=== PATIENT | female | born 1955 | race Caucasian/White ===

== ENCOUNTER 2017-06-24 12:13 | Day surgery (SDC) | payer OTHER ==
[2017-06-23 12:05] VITALS: BMI 25.0
[2017-06-24] MEDS ORDERED: MIDAZOLAM HCL 2 MG/2 ML SINGLE DOSE VIAL ONE (13:49)
[2017-06-24] MEDS ORDERED: BACITRACIN 3.5 GM OPTHALMIC OINT TUBE ONE (13:53)
[2017-06-24] MEDS ORDERED: TETRACAINE 0.5% OPHTH SOLN 2 ML BOTTLE ONE (13:53)
[2017-06-24] MEDS ORDERED: BUPIVACAINE HCL/PF 0.5% (5MG/ML) 10 ML VIAL ONE (13:54)
[2017-06-24] MEDS ORDERED: LIDOCAINE 1%/EPI 1:100000 (20 ML MULTI DOSE VIAL) ONE ×2 (13:54→14:40)
[2017-06-24] MEDS ORDERED: POVIDONE-IODINE 5% OPHTHALMIC PREP 30 ML SOLUTION ONE (13:54)
[2017-06-24] MEDS ORDERED: methylPREDNISolone NA SUCC 40 MG/1 ML VIAL ONE (14:21)
[2017-06-24] MEDS ORDERED: PROPOFOL 20 ML ONE ×4 (14:27)
[2017-06-24] MEDS ORDERED: ceFAZolin SODIUM 1 GM VIAL ONE (14:35)
[2017-06-24] MEDS ORDERED: ONDANSETRON 4 MG/2 ML VIAL ONE (15:21)
[2017-06-24] MEDS ORDERED: DEXAMETHASONE SOD PHOSPHATE 4 MG/1 ML VIAL ONE (15:22)
[2017-06-24] MEDS ORDERED: ONDANSETRON 4 MG/2 ML VIAL IVPUSH PRN (15:49)
[2017-06-24] MEDS ORDERED: oxyCODONE HCL 5 MG TABLET PO PRN (15:49)
[2017-06-24] MEDS ORDERED: LACTATED RINGERS SOLUTION 1,000 ML IV SCH (16:00)
[2017-06-24 16:37] VITALS: TEMP 97.7
[2017-06-24 18:20] VITALS: BP 121/78; PULSE 64
--- NOTE | 2017-06-27 09:29 | OP ---
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 PROCEDURES: 1. Exam under anesthesia. 2. Full-thickness blepharotomy, left upper lid, for treatment of severe lid retraction with a graded blepharotomy, followed by a Haywood traction suture on the left upper lid. SURGEON: Kristen Hassan M.D. ANESTHESIA: Local with sedation. COMPLICATIONS: None. ESTIMATED BLOOD LOSS: 2 to 3 mL. OPERATIVE REPORT: The patient was brought to the operating room and placed on the operating room table. Vital signs were monitored by Anesthesia. Tetracaine was placed in both eyes. The lid creases were marked to be symmetric in the left upper lid with the right upper lid at approximately 10 to 11 mm above the margin for the full width of the lid. The patient was given intravenous sedation. Then, 2% Xylocaine 1:100,000 epinephrine was injected into the lid, across the lid crease and subconjunctivally across the top of the tarsus for a total slightly more than 1 mL. hemostasis. Then, 4-0 silk traction suture was passed through the central lid margin. The lid was clamped inferiorly. Once the patient was prepped and draped in usual sterile fashion, a timeout had been performed. The lid crease was then incised with a 15 blade through the skin and subcutaneous tissue. This was carried through the orbicularis with a Oldham needle. The levator was seen through a diaphanous septum. It should be noted that with all the retraction of the eyelid, the septum was somewhat retracted and the fat was elevated above. The septum was widely open, exposing the preoperative fat, which was retracted and then the septum itself was dissected off the levator aponeurosis, across the lid to the eyelid, to allow the full-thickness blepharotomy. Wanda scissors were then introduced at the lateral extent of the eyelid crease and the nasal extent of the eyelid crease, and buttonholes were made at both points, quartering it with the Wanda for initiation of the full-thickness blepharotomy. The patient was placed in the upright position and a 3- to 5-mm pedicle of retained levator muscle and conjunctivae was marked just nasal and the blepharotomy was increased from medial toward this bridge of tissue and from lateral toward this bridge of tissue until only the bridge of tissue remained. Patient was examined and again, there continued to be a marked lid retraction with positive forced duction so that even manual closure of the upper lid was difficult. So, the levator and muscle were dissected off until only conjunctivae was left in this small, 3-mm width of tissue just nasal to the pupillary line. However, even this small amount of tissue remaining attached to the superior tarsus resulted in lid retraction and inability to manually close the lid. Therefore, the full-thickness blepharotomy was completed across the eyelid. A hang-back, double-armed 6-0 Vicryl suture was passed through the levator that had just been released at the nasal line and passed through the anterior superior tarsus. 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 As the Vicryl was tied, antibiotic irrigation was instilled, and the skin was closed after hemostasis with a running 6-0 nylon suture. A double-armed 4-0 silk was passed into the skin and gonzalez line of the lateral lid, and secured to the cheek with Mastisol and Steri-Strips. This placed the lid on stretch in a reverse Haywood stitch type. Bacitracin oil was placed in the eye and on the sutures, and the patient was taken to the recovery room in stable condition. KRISTEN HASSAN M.D. [id number]
== END 2017-06-24 18:35 | disposition home or self-care (01) ==
LOC: FASU 12:13
PROVIDERS: ATTEND Ophthalmology
PROC: 08QRXZZ Repair Left Lower Eyelid, External Approach (ICD-10-PCS; 2017-06-24)
PROC: 08QPXZZ Repair Left Upper Eyelid, External Approach (ICD-10-PCS; 2017-06-24)
PROC: 08BP0ZZ Excision of Left Upper Eyelid, Open Approach (ICD-10-PCS; principal; 2017-06-24 14:45)
DX: H02.531 Eyelid retraction right upper eyelid (principal); E05.00 Thyrotoxicosis with diffuse goiter without thyrotoxic crisis or storm; H05.20 Unspecified exophthalmos; H18.9 Unspecified disorder of cornea
CPT/HCPCS: 94760

== ENCOUNTER 2017-07-26 06:32 | Day surgery (SDC) | payer OTHER ==
[2017-07-22 15:27] VITALS: BMI 24.1
[2017-07-26] MEDS ORDERED: BACITRACIN 3.5 GM OPTHALMIC OINT TUBE ONE (07:26)
[2017-07-26] MEDS ORDERED: POVIDONE-IODINE 5% OPHTHALMIC PREP 30 ML SOLUTION ONE (07:27)
[2017-07-26] MEDS ORDERED: TETRACAINE 0.5% OPHTH SOLN 2 ML BOTTLE ONE (07:27)
[2017-07-26] MEDS ORDERED: BUPIVACAINE HCL/PF 0.5% (5MG/ML) 10 ML VIAL ONE (07:27)
[2017-07-26] MEDS ORDERED: LIDOCAINE 1%/EPI 1:100000 (20 ML MULTI DOSE VIAL) ONE (07:27)
[2017-07-26] MEDS ORDERED: MIDAZOLAM HCL 2 MG/2 ML SINGLE DOSE VIAL ONE (07:28)
[2017-07-26] MEDS ORDERED: SUCCINYLCHOLINE CHLORIDE 200 MG/10 ML VIAL ONE (07:34)
[2017-07-26] MEDS ORDERED: PROPOFOL 20 ML ONE ×3 (07:34)
[2017-07-26] MEDS ORDERED: ceFAZolin SODIUM 1 GM VIAL ONE (08:01)
[2017-07-26] MEDS ORDERED: ONDANSETRON 4 MG/2 ML VIAL ONE ×2 (08:01→09:24)
[2017-07-26] MEDS ORDERED: GLYCOPYRROLATE 0.2 MG/1 ML VIAL ONE (08:05)
[2017-07-26] MEDS ORDERED: DEXAMETHASONE SOD PHOSPHATE 4 MG/1 ML VIAL ONE (08:05)
[2017-07-26] MEDS ORDERED: TETRACAINE 0.5% OPHTH SOLN 2 ML BOTTLE OU ONE (08:07)
[2017-07-26] MEDS ORDERED: BACITRACIN 3.5 GM OPTHALMIC OINT TUBE OU ONE ×2 (08:29→09:09)
[2017-07-26] MEDS ORDERED: oxyCODONE HCL 5 MG TABLET PO PRN (09:19)
[2017-07-26] MEDS ORDERED: ONDANSETRON 4 MG/2 ML VIAL IVPUSH PRN (09:19)
[2017-07-26] MEDS ORDERED: LACTATED RINGERS SOLUTION 1,000 ML IV SCH (09:30)
[2017-07-26 10:51] VITALS: TEMP 98.6
[2017-07-26] MEDS ORDERED: oxyCODONE HCL 5 MG TABLET ONE (10:52)
--- NOTE | 2017-07-26 12:06 | OP ---
DATE OF OPERATION: 07/26/2017 PREOPERATIVE DIAGNOSIS: Graves orbitopathy, status post bilateral orbital decompression and blepharotomy left upper lid, with continued exposure of the ocular surface, keratitis and marked chemosis, poorly responsive to medical management. POSTOPERATIVE DIAGNOSIS: Graves orbitopathy, status post bilateral orbital decompression and blepharotomy left upper lid, with continued exposure of the ocular surface, keratitis and marked chemosis, poorly responsive to medical management. PROCEDURES PERFORMED: 1. Lateral canthoplasty, left, with incision of left upper and left lower lids. 2. Lateral canthoplasty, right, with incision of right upper and right lower lids. SURGEON: Kristen Hassan M.D. ANESTHESIA: Local with sedation. COMPLICATIONS: None. ESTIMATED BLOOD LOSS: 5 to 10 mL DESCRIPTION OF PROCEDURE: The patient was brought to the operating room and placed on the operating room table. Vital signs were monitored by Anesthesia. Tetracaine was placed in both eyes. The medial extent of the lateral canthoplasty was marked at the lateral limbus in both eyes. The patient was given intravenous sedation. A time-out was performed. A 50/50 mixture of 2% Xylocaine with 1:100,000 epinephrine and 0.5% Marcaine was injected into the lateral half of the upper lid on the right, lower lid on the right, upper lateral half of the upper lid on the left and lower lid on the left. Gentle massage was applied. The patient was prepped and draped in the usual sterile fashion, exposing both eyes, with Betadine dripped in the eyes. Attention was turned to the right eye first. There was a large amount of temporal chemosis. In order to facilitate this, a small puncture was made at the temporal end of the chemosis with a 30-gauge needle. Then manual compression of the chemosis was carried out with 2 cotton-tipped applicators to try and decompress the chemosis to allow the canthoplasty to be performed in front of the chemosis. Then the following procedure was performed: The lower lid was massaged at the gonzalez line the anterior lamella of the lash roots on the posterior lamella. The epithelium was removed from the superior border of the posterior lamella for the lateral third of the eyelid, just lateral to the limbus. In a similar fashion, the margin was incised the tarsus from the overlying orbicularis and lash roots and the apposing upper lid. A small amount of epithelium was removed from the posterior lamella for about a third of the eyelid, extending to the lateral limbus. The 2 tarsal plates were then anastomosed with 2 horizontal mattress sutures of 6-0 Vicryl, apposing the 2 tarsal plates, being sure that there was no penetration of the suture. The anterior lamella was then secured by passing a 5-0 chromic suture through the skin and groove of the upper lid, then the groove and skin of the lower lid, and then tying this suture. A 2nd was placed laterally. This anastomosed the anterior lamella, and this was reinforced with a double-armed 4-0 silk suture passed through a number 8-[place] Islander red rubber catheter through the medial-most extent of the skin and groove, and groove and skin of the lower and upper lids, and then a similar 2nd arm of the suture was passed lateral to this, and then passed through a second number 8-[place] Island[place] red rubber catheter and tied to reinforce the anastomosis between the upper and lower lids. The same procedure was performed on the left side, with a small puncture wound made in the temporal conjunctiva, decompression carried out with gentle compression with Q-tips to decompress the chemosis temporarily to allow the performance of a , with the margins being incised for about a third of the eyelid, the epithelium being removed and the tarsal plates reanastomosed with 2 interrupted 6-0 Vicryl horizontal mattress sutures that did not penetrate through the posterior lamella, and then reinforced with two 5-0 chromic and then reinforced with a double-armed 4-0 silk with number 8-[place] Islander bolsters for the lower and upper lids and through a 2nd number 8-[place] Islander bolster in identical fashion to the left eyelid . This completed the left and right creation of an adhesion between the upper and lower lids, extending from the lateral limbus laterally not all the way to the canthus and decompression of the chemosis in attempted treatment of marked corneal exposure and keratitis. Bacitracin ointment was then placed in the eyes, on the sutures of the bolsters and on the medial exposed conjunctiva in both eyes. The patient was taken to the recovery room in stable condition. KRISTEN HASSAN M.D. [id number]
[2017-07-26 12:13] VITALS: BP 105/72; PULSE 72
== END 2017-07-26 12:14 | disposition home or self-care (01) ==
LOC: FASU 06:32
PROVIDERS: ATTEND Ophthalmology
PROC: 08SN0ZZ Reposition Right Upper Eyelid, Open Approach (ICD-10-PCS; 2017-07-26)
PROC: 08SP0ZZ Reposition Left Upper Eyelid, Open Approach (ICD-10-PCS; 2017-07-26)
PROC: 08SQ0ZZ Reposition Right Lower Eyelid, Open Approach (ICD-10-PCS; 2017-07-26)
PROC: 08SR0ZZ Reposition Left Lower Eyelid, Open Approach (ICD-10-PCS; principal; 2017-07-26 08:19)
DX: H05.20 Unspecified exophthalmos (principal)
CPT/HCPCS: 94760

== ENCOUNTER 2017-08-16 07:28 | Day surgery (SDC) | payer OTHER ==
[2017-08-12 13:10] VITALS: BMI 24.1
[2017-08-16] MEDS ORDERED: MIDAZOLAM HCL 2 MG/2 ML SINGLE DOSE VIAL ONE (08:58)
[2017-08-16] MEDS ORDERED: ONDANSETRON 4 MG/2 ML VIAL ONE ×2 (09:05→10:00)
[2017-08-16] MEDS ORDERED: DEXAMETHASONE SOD PHOSPHATE 4 MG/1 ML VIAL ONE ×2 (09:05→10:00)
[2017-08-16] MEDS ORDERED: BACITRACIN 3.5 GM OPTHALMIC OINT TUBE ONE (09:24)
[2017-08-16] MEDS ORDERED: TETRACAINE 0.5% OPHTH SOLN 2 ML BOTTLE ONE (09:24)
[2017-08-16] MEDS ORDERED: LIDOCAINE 1%/EPI 1:100000 (20 ML MULTI DOSE VIAL) ONE (09:25)
[2017-08-16] MEDS ORDERED: POVIDONE-IODINE 5% OPHTHALMIC PREP 30 ML SOLUTION ONE (09:25)
[2017-08-16] MEDS ORDERED: BUPIVACAINE HCL/PF 0.5% (5MG/ML) 10 ML VIAL ONE (09:25)
[2017-08-16] MEDS ORDERED: LIDOCAINE HCL/PF 2% SDV 5ML VIAL ONE (10:00)
[2017-08-16] MEDS ORDERED: ceFAZolin SODIUM 1 GM VIAL ONE (10:00)
[2017-08-16] MEDS ORDERED: ONDANSETRON 4 MG/2 ML VIAL IVPUSH PRN (10:30)
[2017-08-16] MEDS ORDERED: oxyCODONE HCL 5 MG TABLET PO PRN (10:30)
[2017-08-16] MEDS ORDERED: LACTATED RINGERS SOLUTION 1,000 ML IV SCH (10:30)
[2017-08-16] MEDS ORDERED: ONDANSETRON 4 MG/2 ML VIAL IVPUSH ONE (10:47)
--- NOTE | 2017-08-16 11:01 | OP ---
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 PROCEDURE: Temporary medial tarsorrhaphy, right, and temporary medial tarsorrhaphy, left. SURGEON: Kristen Hassan MD ANESTHESIA: Isabel Chase MD TYPE OF ANESTHESIA: Local with sedation. COMPLICATIONS: None. ESTIMATED BLOOD LOSS: 0.25 mL. OPERATIVE REPORT: Patient brought to the operating room, placed on the operating room table, vital signs monitored by Anesthesia. Tetracaine was placed in both eyes. Timeout was performed, and then a 50/50 mixture of 2% Xylocaine, 1:100,000 epinephrine, 0.5% Marcaine was injected subcutaneously in the upper and lower lids bilaterally for the nasal third of each eyelid, for a total of 2-3 mL. Gentle massage was applied. Exam was carried out, and the denominational chemosis was seen to be resolved. There was still some moderate resistance to retropulsion in both eyes, worse on the left, despite prior orbital decompression. The following procedure was performed bilaterally. After the patient was prepped and draped in sterile fashion, a double-arm 4-0 silk passed through a No. 8-[place] red rubber bolster. It was passed through the skin and gonzalez line of the lower lid gonzalez line and skin of the upper lid just lateral to the punctum. It was passed through a second No. 8 bolster and then tied, with gentle approximation of the eyelids so that they would completely cover the chemotic conjunctiva in the nasal portion of the eyelid. This was performed on both the right and left side. The left side, which had the greater amount of chemosis nasally needed the tarsorrhaphy suture to be slightly more lateral than on the right side. Each was tied after being passed through a second bolster so that the lids were well approximated but without excess pressure. Bacitracin ointment was then placed on the sutures after antibiotic irrigation, and the patient was taken to recovery room in stable condition. KRISTEN HASSAN M.D. [id number]
[2017-08-16 12:14] VITALS: TEMP 98.2
[2017-08-16 15:01] VITALS: BP 124/72; PULSE 56
== END 2017-08-16 13:15 | disposition home or self-care (01) ==
LOC: FASU 07:28
PROVIDERS: ATTEND Ophthalmology
PROC: 08QNXZZ Repair Right Upper Eyelid, External Approach (ICD-10-PCS; 2017-08-16)
PROC: 08QRXZZ Repair Left Lower Eyelid, External Approach (ICD-10-PCS; 2017-08-16)
PROC: 08QPXZZ Repair Left Upper Eyelid, External Approach (ICD-10-PCS; 2017-08-16)
PROC: 08QQXZZ Repair Right Lower Eyelid, External Approach (ICD-10-PCS; principal; 2017-08-16 10:08)
DX: H16.213 Exposure keratoconjunctivitis, bilateral (principal); H05.89 Other disorders of orbit
CPT/HCPCS: 94760